=== PATIENT | male | born 1950 | race Asian ===

== ENCOUNTER → 2023-02-16 | Day surgery (SDC) | payer OTHER ==
[~2023-02-16] VITALS: Ht 167.6 cm; Wt 81.7 kg
[~2023-02-16] MED LIST: ALBUTEROL SULFATE 2.5 MG/0.5 ML NEB SOLUTION NEB ONE; BENZOCAINE 20% 50 MCG/SPRAY 57 GM TP ONE; FentaNYL CITRATE PF 100 MCG/2 ML VIAL ONE; LIDOCAINE 2% 11 ML JELLY TP ONE; LIDOCAINE 4% 50 ML SOLUTION TP ONE; MIDAZOLAM HCL 2 MG/2 ML VIAL ONE; MethylPREDNISolone SOD SUCC 125 MG/2 ML VIAL IVP ONE; SODIUM CHLORIDE 0.9% 1,000 ML IV ONE; SODIUM CHLORIDE 0.9% 1,000 ML ONE
[2023-02-16 08:15] LABS: GLUCOMETER DEV NAME(LOC) SDS.; GLUCOSE,POINT OF CARE 111 MG/DL (70-110)
[2023-02-16 09:30] VITALS: PULSE 76; RESP 12; O2SAT 98
== END | disposition home or self-care (01) ==
LOC: SURGERY 06:35
PROVIDERS: ATTEND Internal Medicine Critical Care Medicine
DX: J98.09 Other diseases of bronchus, not elsewhere classified (principal); J98.8 Other specified respiratory disorders; R91.1 Solitary pulmonary nodule
CPT/HCPCS: 82962; 87206; 87101; 87220; 87070; 31623; 31624; 94640; 71045; 87015; J3010; J2250; J2930; Q9967; J7030; J7613; Z7610